=== PATIENT | male | born 1990 | race Hispanic/Latino ===

== ENCOUNTER 2025-01-01 19:42 | Emergency (ER) | payer OTHER | END 2025-01-01 21:48 | LOC: ERS 19:42 | DX: Z02.89 Encounter for other administrative examinations (principal); V49.40XA Driver injured in collision with unspecified motor vehicles in traffic accident, initial encounter | CPT/HCPCS: 71045; 93005 ==

== ENCOUNTER 2025-01-03 17:49 | Emergency (ER) | payer SELFPAY ==
[2025-01-03] MEDS ORDERED: Ketorolac Tromethamine 30 MG (1 mL) VIAL ONE (19:56)
[2025-01-03] MEDS ORDERED: HYDROcodone/Acetaminophen 5/325 mg Tablet ONE (19:56)
== END 2025-01-03 22:00 | disposition home or self-care (01) ==
LOC: ERS 17:49
DX: S06.0X0A Concussion without loss of consciousness, initial encounter (principal); V49.9XXA Car occupant (driver) (passenger) injured in unspecified traffic accident, initial encounter
CPT/HCPCS: 70450; 71250; 96372; J1885